=== PATIENT | female | born 1975 | race Caucasian/White ===

== ENCOUNTER 2025-07-06 13:58 | Emergency (ER) | payer BC, SELFPAY ==
[2025-07-06 14:09] VITALS: PULSE 97; O2SAT 99
--- NOTE | 2025-07-06 14:09 | ED_ITS ---
HPI - Asthma General Chief Complaint: Asthma Stated Complaint: Asthma Time Seen by Provider: 07/06/25 14:04 Source: patient Mode of arrival: ambulatory Limitations: no limitations History of Present Illness HPI Narrative: Terri is a 50-year-old female patient presenting to the clinic today with complaints of possible asthma exacerbation. Reports over the last several days she has had coughing, wheezing, and shortness of breath. She reports she is coughing up a nome green phlegm. Denies any chest pain. History of asthma. Has been using her albuterol inhaler and nebulizer. States her home was very c[place] and she thinks that is what is causing her symptoms. No fever, chills, body aches. Related Data Home Medications ?Medication ?Instructions ?Recorded ?Confirmed ?Last Taken ?Type albuterol sulfate 90 mcg/actuation inhalation 07/06/25 Unknown History aerosol inhaler Allergies Allergy/AdvReac Type Severity Reaction Status Date / Time semaglutide (From [employer] [employer]) Allergy Severe Anaphylaxis Verified 07/06/25 14:33 lisinopril Allergy Intermediate Swelling Verified 07/06/25 14:33 of Lip/Tongue/Throat Review of Systems Review of Systems: Pertinent positives per HPI. Patient denies any fever, chills, rash, headache, visual changes, dizziness, chest pain, palpitations, nausea, vomiting, diarrhea, constipation, abdominal pain, or any urinary issues. LEE ANN Comments At the time of my signature, I reviewed and agree with the nursing past medical, surgical, social, and family history. There is no relevant family history pertinent to the patient complaint. Exam Narrative: General: Well-developed, obese, in no apparent distress Head: Normocephalic, atraumatic Eyes: Pupils equally round and reactive to light bilaterally, EOM intact, sclera and conjunctive clear, no discharge, lids normal Ears: TMs intact and clear, ear canals clear, no drainage, grossly hearing normal. Nose: Nares patent, clear nasal discharge, moderate inflammation, no sinus tenderness. Mouth: Oral pharynx without lesions or masses, good dentition, MMM. Neck: Supple, trachea midline, no enlargement of anterior or posterior cervical nodes, no thyroid masses or goiter palpable. Cardio: Regular rate and rhythm, s1 and s2 normal, no murmur appreciated. Resp: Inspiratory wheezing with expiratory rhonchi throughout lung marie, no rales or rubs Course Course Emergency Course: Portions of this record may have been created with voice recognition software. Level of Care: Express Care Visit Vital Signs Vital signs: Vital Signs Temperature 36.6 C 07/06/25 14:11 Pulse Rate 97 07/06/25 14:11 Respiratory Rate 20 07/06/25 14:11 Blood Pressure 171/107 H 07/06/25 14:11 Pulse Oximetry 99 07/06/25 14:11 Temperature 36.6 C 07/06/25 14:11 Pulse Rate 97 07/06/25 14:11 Respiratory Rate 20 07/06/25 14:11 Blood Pressure 171/107 H 07/06/25 14:11 Pulse Oximetry 99 07/06/25 14:11 Vital signs reviewed MDM - Asthma MDM Narrative Medical decision making narrative: At the time of visit patient is resting comfortably on the exam table. Patient appears to be nontoxic. complaints of possible asthma exacerbation. Reports over the last several days she has had coughing, wheezing, and shortness of breath. She reports she is coughing up a nome green phlegm. Denies any chest pain. History of asthma. Has been using her albuterol inhaler and nebulizer. States her home was very cecy and she thinks that is what is causing her sym ptoms. No fever, chills, body aches. On exam patient has mild TMs intact and clear, clear nasal drainage, moderate anterior turbinate inflammation, oral pharynx normal, heart rates regular rate and rhythm, lung sounds inspiratory wheezing with expiratory rhonchi. SpO2 99% on room air. Patient's last breathing treatment was approximately 1 hour ago. Solu-Medrol 125 mg IM and DuoNeb treatment ordered. Medications: Solu-Medrol 125 mg IM given in the clinic today. DuoNeb treatment given in the clinic today. Aeration of lung sounds improved after breathing treatment. Patient still has some lingering expiratory wheezing. Plan: I suspect patient has asthma exacerbation. Patient is coughing up some green phlegm. Will send in prescription for azithromycin and prednisone. Patient to continue using her albuterol inhaler/nebulizer treatments as prescribed Supportive measures were discussed with the patient and they voiced understanding discharge instructions and agrees to treatment plan. Return precautions reviewed Differential Diagnosis Differential diagnosis: Likely Acute exacerbation, Status asthmaticus, Acute ast hmatic bronchitis, PE, Pneumonia, COPD exacerbation, Pulmonary edema systolic, Pulmonary edema dystolic, ARDS, Pneumothorax and Foreign body in trachea Discharge Plan Discharge Clinical Impression: Asthma with acute exacerbation Qualifiers: Asthma severity: unspecified severity Asthma persistence: unspecified Qualified Code(s): J45.901 - Unspecified asthma with (acute) exacerbation Patient Disposition: Home Condition: Stable Instructions: Antibiotic Form, Asthma (ED) Additional Instructions: Take prescription medications only as prescribed-azithromycin and prednisone- start prednisone on 07/07/25 Increase fluids and stay well hydrated May take Tylenol or motrin as directed on bottle for pain/fever May use Flonase 1 spray in each nare daily May take OTC antihistamines such as Zyrtec or Claritin daily as directed on bottle May apply Vicks vapor rub to chest to open sinuses Sinus rinses for congestion Cepacol spray, cough drops, throat lozenges, warm tea with honey/lemon, gargle salt water to soothe throat BRAT diet for diarrhea Clear liquids x 24 hours then advance as tolerated for nausea/vomiting Go to the ED if you develop a worsening in your condition- high fever not controlled by Tylenol or Motrin, dehydration, weakness, lethargy, shortness of breath, or chest pain. Follow up with your PCP in 3-5 days if symptoms persist. Patient Language: [place] Zeal[place] Prescriptions: New azithromycin 250 mg tablet See Rx Instructions .ROUTE .COMPLEX Qty: 6 0RF Rx Instructions: For 250 mg dose pack: take 500 mg today (day 1), then 250 mg for 4 days (days 2-5) prednisone 20 mg tablet 40 mg PO DAILY 5 Days Qty: 10 0RF No Action albuterol sulfate 90 mcg/actuation HFA aerosol inhaler INHALATION Follow-up/Referrals: PHYSICIAN,DENTURES LAB TECHNICIAN [Primary Care Provider, Internal Medicine] Time of Disposition: 15:09 Quality NIHSS Nursing Documentation ED NIHSS nursing documentation: reviewed/agree
[2025-07-06 14:11] VITALS: BP 171/107; PULSE 97; RESP 20; TEMP 36.6; O2SAT 99
[2025-07-06] MEDS: ALBUTEROL SULFATE NEB 2.5 MG/3 ML INH INHALATION (14:34)
[2025-07-06] MEDS: IPRATROPIUM BR 0.02% INH SOLN 0.5 MG/2.5 ML VIAL INHALATION (14:35)
[2025-07-06 14:45] VITALS: PULSE 95; RESP 17; O2SAT 98
== END 2025-07-06 15:10 | disposition home or self-care (01) ==
PROVIDERS: Emergency Provider Nurse Practitioner Family
DX: J45.901 Unspecified asthma with (acute) exacerbation (principal); I10 Essential (primary) hypertension
CPT/HCPCS: 96372; 99203; G0463; J2919